=== PATIENT | female | born 1990 | race Two or more races ===

== ENCOUNTER 2016-10-09 07:10 | Observation (INO) | payer OTHER ==
[2016-10-09] MEDS ORDERED: CARBOPROST 250 MCG/ML SOL IM PRN (08:07)
[2016-10-09] MEDS ORDERED: OXYTOCIN 10000 MU/ML SOL IM PRN (08:07)
[2016-10-09] MEDS ORDERED: METHYLERGONOVINE MALEATE 0.2 MG/ML SOL IM PRN (08:07)
[2016-10-09] MEDS ORDERED: MEPIVACAINE HCL 1% MPF 30 ML SOL INFIL PRN (08:07)
[2016-10-09] MEDS ORDERED: FENTANYL CITRATE 50 MCG/ML SOL IV PRN (08:07)
[2016-10-09] MEDS ORDERED: LACTATED RINGERS 1,000 ML IV PRN (08:07)
[2016-10-09] MEDS ORDERED: TERBUTALINE SULFATE 1 MG/ML SOL SC PRN (08:08)
[2016-10-09] MEDS: SODIUM CHLORIDE 0.9% FLUSH 10 ML SOL IV SCH ×2 (08:44→16:46)
[2016-10-09] MEDS: MISOPROSTOL 100 MCG TAB PO SCH ×3 (08:44→17:57)
[2016-10-09] MEDS: FOLIC ACID 1 MG TAB PO SCH (08:52)
[2016-10-09] MEDS: MULTIVITAMIN2 1 EA TAB PO SCH (08:52)
[2016-10-09 09:30] LABS: BASOPHILS % (AUTO) 1 % (0-3); EOSINOPHILS % (AUTO) 1 % (0-9); HEMATOCRIT 39 % (35-47); MEAN CORPUSCULAR HGB CONC 35.2 gm/dl (32.0-36.0); MEAN CORPUSCULAR VOLUME 89 fL (81-99); MONOCYTES % (AUTO) 7.6 % (0-12)
[2016-10-10] MEDS: MISOPROSTOL 100 MCG TAB PO SCH (02:39)
[2016-10-10] MEDS: SODIUM CHLORIDE 0.9% FLUSH 10 ML SOL IV PRN ×2 (05:40→21:27)
[2016-10-10] MEDS ORDERED: OXYTOCIN 10000 MU/ML 20,000 MU in LACTATED RINGERS 1,000 ML IV SCH (07:00)
[2016-10-10] MEDS ORDERED: LACTATED RINGERS 1,000 ML IV SCH ×2 (07:00→13:45)
[2016-10-10] MEDS ORDERED: OXYTOCIN 10000 MU/ML SOL ONE (07:17)
[2016-10-10] MEDS ORDERED: LACTATED RINGERS 1,000 ML ONE (07:17)
[2016-10-10] MEDS: SODIUM CHLORIDE 0.9% FLUSH 10 ML SOL IV SCH ×3 (09:15→17:31)
[2016-10-10] MEDS: MULTIVITAMIN2 1 EA TAB PO SCH (09:18)
[2016-10-10] MEDS: FOLIC ACID 1 MG TAB PO SCH (09:18)
[2016-10-10] MEDS ORDERED: SODIUM CHLORIDE 0.9% 1000ML 1,000 ML IV ONE (11:13)
[2016-10-10 15:09] VITALS: O2SAT 98
[2016-10-10 21:00] VITALS: PULSE 59
[2016-10-11 01:03] VITALS: RESP 16
[2016-10-11 05:41] VITALS: BP 96/51; TEMP 97.7
[2016-10-11] MEDS: SODIUM CHLORIDE 0.9% FLUSH 10 ML SOL IV SCH (05:42)
== END 2016-10-11 09:20 | disposition home or self-care (01) | DRG 782 ==
LOC: OB 07:10
PROVIDERS: ADMIT Emergency Medicine; ATTEND Emergency Medicine
DX: O61.0 Failed medical induction of labor (principal); Z3A.40 40 weeks gestation of pregnancy
CPT/HCPCS: 36415; 59025; 85025; J0670; J2590; J3105

== ENCOUNTER 2016-10-18 08:01 | Inpatient (IN) | payer OTHER ==
[2016-10-18] MEDS ORDERED: LACTATED RINGERS 1,000 ML IV ONE (08:51)
[2016-10-18] MEDS ORDERED: METHYLERGONOVINE MALEATE 0.2 MG/ML SOL IM PRN (08:58)
[2016-10-18] MEDS ORDERED: LACTATED RINGERS 1,000 ML IV PRN (08:58)
[2016-10-18] MEDS ORDERED: FENTANYL CITRATE 50 MCG/ML SOL IV PRN (08:58)
[2016-10-18] MEDS ORDERED: CARBOPROST 250 MCG/ML SOL IM PRN (08:58)
[2016-10-18] MEDS ORDERED: SODIUM CHLORIDE 0.9% FLUSH 10 ML SOL IV PRN (08:58)
[2016-10-18] MEDS ORDERED: MEPIVACAINE HCL 1% MPF 30 ML SOL INFIL PRN (08:58)
[2016-10-18] MEDS ORDERED: OXYTOCIN 10000 MU/ML SOL IM PRN (08:58)
[2016-10-18] MEDS: SODIUM CHLORIDE 0.9% FLUSH 10 ML SOL IV SCH ×2 (09:00→17:31)
[2016-10-18] MEDS ORDERED: TERBUTALINE SULFATE 1 MG/ML SOL SC PRN (10:00)
[2016-10-18] MEDS ORDERED: OXYTOCIN 10000 MU/ML 20,000 MU in LACTATED RINGERS 1,000 ML IV SCH (10:00)
[2016-10-18] MEDS ORDERED: LACTATED RINGERS 1,000 ML IV SCH ×2 (10:00→23:15)
[2016-10-18] MEDS ORDERED: OXYTOCIN 10000 MU/ML SOL ONE (10:24)
[2016-10-18] MEDS ORDERED: LACTATED RINGERS 1,000 ML ONE (10:25)
[2016-10-18] MEDS ORDERED: EPHEDRINE SULFATE 50 MG/ML SOL IV PRN (23:07)
[2016-10-18] MEDS ORDERED: NALBUPHINE HCL 20 MG/ML SOL IV PRN (23:07)
[2016-10-18] MEDS ORDERED: NALOXONE HYDROCHLORIDE 0.4 MG/ML SOL IV PRN (23:07)
[2016-10-18] MEDS ORDERED: DIPHENHYDRAMINE 50 MG/ML SOL IV PRN (23:07)
[2016-10-18] MEDS: LACTATED RINGERS 1,000 ML IV SCH ×2 (23:15→23:22)
[2016-10-18] MEDS ORDERED: FENTANYL CITRATE 50 MCG/ML SOL ONE (23:20)
[2016-10-18] MEDS ORDERED: ROPIVACAINE HYDROCHLORIDE 5 MG/ML SOL ONE (23:21)
[2016-10-18] MEDS ORDERED: LIDOCAINE HCL 2% MPF SOL ONE (23:23)
[2016-10-19] MEDS ORDERED: LIDOCAINE HCL 2% MPF SOL ONE ×2 (00:15→00:44)
[2016-10-19] MEDS ORDERED: CITRIC ACID/SODIUM CITRATE SOL PO ONE (00:18)
[2016-10-19] MEDS ORDERED: LACTATED RINGERS 1,000 ML with OXYTOCIN 10000 MU/ML 20 MU IV ONE (00:30)
[2016-10-19] MEDS ORDERED: OXYTOCIN 10000 MU/ML SOL ONE (00:43)
[2016-10-19] MEDS ORDERED: CEFAZOLIN SODIUM 1 GM PDS ONE (00:43)
[2016-10-19] MEDS ORDERED: EPHEDRINE SULFATE 50 MG/ML SOL ONE (00:44)
[2016-10-19] MEDS ORDERED: MORPHINE SULFATE 0.5 MG/ML SOL ONE (00:55)
[2016-10-19] MEDS ORDERED: BISACODYL 10 MG SUP PR PRN (01:31)
[2016-10-19] MEDS ORDERED: METHYLERGONOVINE MALEATE 0.2 MG TAB PO PRN (01:31)
[2016-10-19] MEDS ORDERED: KETOROLAC TROMETHAMINE 30 MG/ML SOL IV PRN (01:31)
[2016-10-19] MEDS ORDERED: WITCH HAZEL 1 EA PAD TOP PRN (01:31)
[2016-10-19] MEDS ORDERED: TEMAZEPAM 15MG 15 MG CAP PO PRN (01:31)
[2016-10-19] MEDS ORDERED: BENZOCAINE/MENTHOL 1 SPR TOP PRN (01:31)
[2016-10-19] MEDS ORDERED: FLEET ENEMA PR PRN (01:31)
[2016-10-19] MEDS ORDERED: ONDANSETRON HCL 4 MG/2 ML SOL IV PRN (01:31)
[2016-10-19] MEDS ORDERED: DIPHENHYDRAMINE 25 MG CAP PO PRN (01:31)
[2016-10-19] MEDS ORDERED: KETOROLAC TROMETHAMINE 30 MG/ML SOL ONE (01:56)
[2016-10-19] MEDS ORDERED: HYDROMORPHONE HCL 2 MG/ML 1 ML SOL ONE (02:51)
[2016-10-19] MEDS ORDERED: HYDROMORPHONE HCL 2 MG/ML 1 ML SOL IV ONE (03:00)
[2016-10-19] MEDS: APAP/HYDROCODONE 325/5 TAB PO PRN ×4 (05:20→19:41)
[2016-10-19] MEDS: LACTATED RINGERS 1,000 ML IV SCH ×2 (05:21→12:30)
[2016-10-19] MEDS: SODIUM CHLORIDE 0.9% FLUSH 10 ML SOL IV SCH ×2 (05:54→08:39)
[2016-10-19] MEDS: DOCUSATE SODIUM 100 MG SGL PO SCH ×2 (09:17→21:20)
[2016-10-19] MEDS: IBUPROFEN 600 MG TAB PO PRN (21:19)
[2016-10-20] MEDS: IBUPROFEN 600 MG TAB PO PRN ×3 (05:00→19:12)
[2016-10-20] MEDS: SODIUM CHLORIDE 0.9% FLUSH 10 ML SOL IV SCH (06:16)
[2016-10-20] MEDS: LACTATED RINGERS 1,000 ML IV SCH ×2 (06:17→06:18)
[2016-10-20] MEDS: DOCUSATE SODIUM 100 MG SGL PO SCH ×2 (10:28→23:08)
[2016-10-20] MEDS: APAP/HYDROCODONE 325/5 TAB PO PRN ×4 (10:29→23:10)
[2016-10-21] MEDS: IBUPROFEN 600 MG TAB PO PRN ×2 (06:09→19:39)
[2016-10-21] MEDS: APAP/HYDROCODONE 325/5 TAB PO PRN ×4 (06:09→23:28)
[2016-10-21] MEDS: DOCUSATE SODIUM 100 MG SGL PO SCH ×2 (08:42→20:26)
[2016-10-21 17:12] VITALS: O2SAT 98
[2016-10-22] MEDS: APAP/HYDROCODONE 325/5 TAB PO PRN ×2 (06:54→10:13)
[2016-10-22] MEDS: IBUPROFEN 600 MG TAB PO PRN (06:54)
[2016-10-22] MEDS: DOCUSATE SODIUM 100 MG SGL PO SCH (08:48)
[2016-10-22 09:38] VITALS: BP 128/82; PULSE 76; RESP 18; TEMP 97.7
== END 2016-10-22 11:30 | disposition home or self-care (01) | DRG 766 ==
LOC: OB 08:01 → OBSVTOIN 08:01
PROVIDERS: ADMIT Emergency Medicine; ATTEND Emergency Medicine
PROC: 3E033VJ Introduction of Other Hormone into Peripheral Vein, Percutaneous Approach (ICD-10-PCS; 2016-10-18)
PROC: 10D00Z1 Extraction of Products of Conception, Low, Open Approach (ICD-10-PCS; principal; 2016-10-19 00:20)
DX: O62.1 Secondary uterine inertia (principal); O48.0 Post-term pregnancy; Z3A.40 40 weeks gestation of pregnancy; O76 Abnormality in fetal heart rate and rhythm complicating labor and delivery; Z37.0 Single live birth
CPT/HCPCS: 36415; 59025; 74000; 85018; J0670; J0690; J1170; J1885; J2275; J2590; J2795; J3010; J3105; A4450

== ENCOUNTER 2018-10-30 05:27 | Inpatient (IN) | payer OTHER ==
[2018-10-30] MEDS ORDERED: SODIUM CHLORIDE 0.9% 50 ML 25 ML IV PRN (05:42)
[2018-10-30] MEDS: LACTATED RINGERS 1,000 ML IV SCH ×5 (05:45→22:23)
[2018-10-30] MEDS ORDERED: CITRIC ACID/SODIUM CITRATE SOL PO SCH (05:45)
[2018-10-30] MEDS ORDERED: CEFAZOLIN SODIUM 1 GM PDS 1 GM in SODIUM CHLORIDE 0.9% 50 ML 50 ML IV ONE (05:47)
[2018-10-30] MEDS ORDERED: MORPHINE SULFATE 0.5 MG/ML SOL ONE (06:20)
[2018-10-30] MEDS ORDERED: EPHEDRINE SULFATE 50 MG/ML SOL ONE (06:22)
[2018-10-30] MEDS ORDERED: CEFAZOLIN SODIUM 1 GM PDS ONE (07:01)
[2018-10-30] MEDS ORDERED: LACTATED RINGERS 1,000 ML with OXYTOCIN 10000 MU/ML 20 MU IV ONE (07:10)
[2018-10-30] MEDS ORDERED: OXYTOCIN 10000 MU/ML SOL ONE (07:11)
[2018-10-30] MEDS ORDERED: WITCH HAZEL 1 EA PAD TOP PRN (08:18)
[2018-10-30] MEDS ORDERED: BENZOCAINE/MENTHOL 1 SPR TOP PRN (08:18)
[2018-10-30] MEDS ORDERED: BISACODYL 10 MG SUP PR PRN (08:18)
[2018-10-30] MEDS ORDERED: TEMAZEPAM 15MG 15 MG CAP PO PRN (08:18)
[2018-10-30] MEDS ORDERED: ONDANSETRON HCL 4 MG/2 ML SOL IV PRN (08:18)
[2018-10-30] MEDS ORDERED: METHYLERGONOVINE MALEATE 0.2 MG TAB PO PRN (08:18)
[2018-10-30] MEDS ORDERED: FLEET ENEMA PR PRN (08:18)
[2018-10-30] MEDS ORDERED: DIPHENHYDRAMINE 25 MG CAP PO PRN (08:18)
[2018-10-30] MEDS: KETOROLAC TROMETHAMINE 30 MG/ML SOL IV PRN ×2 (09:27→17:16)
[2018-10-30] MEDS: SODIUM CHLORIDE 0.9% FLUSH 10 ML SOL IV PRN ×2 (09:27→17:17)
[2018-10-30] MEDS: MULTIVITAMIN2 1 EA TAB PO SCH (10:23)
[2018-10-30] MEDS: FOLIC ACID 1 MG TAB PO SCH (10:23)
[2018-10-30] MEDS: DOCUSATE SODIUM 100 MG SGL PO SCH ×2 (10:23→21:29)
[2018-10-30 11:00] LABS: APPEARANCE,URINE Clear; BILIRUBIN,URINE NEGATIVE (NEGATIVE); COLOR,URINE Light yellow; GLUCOSE, URINE (UA) NEGATIVE (NEGATIVE); KETONES,URINE NEGATIVE (NEGATIVE); LEUKOCYTE ESTERASE ,URINE NEGATIVE (NEGATIVE); NITRATE,URINE NEGATIVE (NEGATIVE); OCCULT BLOOD,URINE NEGATIVE (NEG-TRACE); UROBILINOGEN,URINE 0.2 (0.2-1.0 EU)
[2018-10-30 11:32] LABS: BACTERIA TRACE (< 1+); CRYSTALS NEGATIVE (0-3 AVE/HPF); EPITHELIAL CELLS 0-2 (SQUAMOUS); RBC,URINE NEGATIVE (0-3AV/HPF); WBC,URINE NEGATIVE (0-5AV/HPF)
[2018-10-30] MEDS: APAP/HYDROCODONE 1 EACH TABLET PO PRN ×2 (21:29→22:24)
[2018-10-31] MEDS: KETOROLAC TROMETHAMINE 30 MG/ML SOL IV PRN (03:01)
[2018-10-31] MEDS: SODIUM CHLORIDE 0.9% FLUSH 10 ML SOL IV PRN (03:01)
[2018-10-31] MEDS: LACTATED RINGERS 1,000 ML IV SCH (03:40)
[2018-10-31] MEDS: FOLIC ACID 1 MG TAB PO SCH (09:37)
[2018-10-31] MEDS: APAP/HYDROCODONE 1 EACH TABLET PO PRN ×4 (09:37→21:38)
[2018-10-31] MEDS: DOCUSATE SODIUM 100 MG SGL PO SCH ×2 (09:37→21:38)
[2018-10-31] MEDS: MULTIVITAMIN2 1 EA TAB PO SCH (09:37)
[2018-10-31] MEDS: IBUPROFEN 600 MG TAB PO PRN (12:14)
[2018-10-31 21:45] VITALS: RESP 18
[2018-11-01] MEDS: APAP/HYDROCODONE 1 EACH TABLET PO PRN ×5 (01:55→21:03)
[2018-11-01] MEDS: MULTIVITAMIN2 1 EA TAB PO SCH (08:49)
[2018-11-01] MEDS: DOCUSATE SODIUM 100 MG SGL PO SCH ×2 (08:49→21:03)
[2018-11-01] MEDS: FOLIC ACID 1 MG TAB PO SCH (08:49)
[2018-11-01] MEDS: IBUPROFEN 600 MG TAB PO PRN (10:03)
[2018-11-02] MEDS: APAP/HYDROCODONE 1 EACH TABLET PO PRN ×2 (00:29→08:02)
[2018-11-02] MEDS: IBUPROFEN 600 MG TAB PO PRN ×2 (00:29→11:15)
[2018-11-02] MEDS: DOCUSATE SODIUM 100 MG SGL PO SCH (08:02)
[2018-11-02] MEDS: FOLIC ACID 1 MG TAB PO SCH (08:02)
[2018-11-02] MEDS: MULTIVITAMIN2 1 EA TAB PO SCH (08:02)
[2018-11-02 08:22] VITALS: BP 106/72; PULSE 63; TEMP 98.3; O2SAT 95
== END 2018-11-02 11:30 | disposition home or self-care (01) | DRG 788 ==
LOC: OB 05:27 → OBSVTOIN 05:27
PROVIDERS: ADMIT Family Medicine; ATTEND Family Medicine
PROC: 10D00Z1 Extraction of Products of Conception, Low, Open Approach (ICD-10-PCS; principal; 2018-10-30 06:30)
DX: O82 Encounter for cesarean delivery without indication (principal); Z3A.39 39 weeks gestation of pregnancy; O34.211 Maternal care for low transverse scar from previous cesarean delivery; Z37.0 Single live birth
CPT/HCPCS: 36415; 59025; 81001; 85018; J0690; J1885; J2274; J2590; A9270-GY; J3490